=== PATIENT | female | born 1995 | race Caucasian/White ===

== ENCOUNTER 2017-04-18 07:23 | Day surgery (SDC) | payer OTHER ==
[2017-04-18] VITALS (13 sets, daily range): BP systolic 110–148; BP diastolic 55–80; PULSE 56–82; RESP 16–25; Ht 172.7 cm; Wt 169.0 kg
[~2017-04-18] VITALS: Ht 172.7 cm; Wt 169.0 kg
[~2017-04-18 07:23] MED LIST: ACETAMINOPHEN 1000 MG/100 ML IVPB ONE; BUPIVACAINE 0.25% (MPF) 30 ML INJ INJ ONE
[2017-04-18] MEDS ORDERED: SOD CHLORIDE 0.9% 1,000 ML IV ONE (07:30)
[2017-04-18] MEDS ORDERED: CEFAZOLIN 2 GM/50 ML (PMX) 50 ML IVPB ONE (07:30)
[2017-04-18] MEDS ORDERED: ERGO500037 PO (08:09)
[2017-04-18] MEDS ORDERED: RANI150T9 PO (08:09)
[2017-04-18] MEDS ORDERED: PROPOFOL 100 ML ONE (09:47)
[2017-04-18] MEDS ORDERED: LIDOCAINE 2% (SDV) 5 ML INJ ONE (09:52)
[2017-04-18] MEDS ORDERED: MIDAZOLAM 1 MG/ML 2 ML INJ ONE (09:53)
[2017-04-18] MEDS ORDERED: ROCURONIUM 50 MG INJ ONE (09:53)
[2017-04-18] MEDS ORDERED: FENTAnyl 50 MCG/ML VIAL ONE ×2 (09:53→10:19)
[2017-04-18] MEDS ORDERED: BUPIVACAINE 0.25% (MPF) 30 ML INJ ONE (09:55)
[2017-04-18] MEDS ORDERED: FAMOTIDINE 20 MG INJ ONE (10:14)
[2017-04-18] MEDS ORDERED: METOCLOPRAMIDE 10 MG INJ ONE (10:14)
[2017-04-18] MEDS ORDERED: DEXAMETHASONE 4 MG/ML 1 ML INJ ONE (10:19)
[2017-04-18] MEDS ORDERED: NEOSTIGMINE 3 MG/3 ML SYRINGE ONE (10:56)
--- NOTE | 2017-04-18 10:56 | OPR ---
Date/Time of Note Date/Time of Note DATE: 04/18/17 TIME: 10:53 Operative Report Procedure Date: Apr 18, 2017 Preoperative Diagnosis symptomatic gallstones Postoperative Diagnosis same Operation Performed 1. laparoscopic cholecystectomy 2. therapeutic injection of subcutaneous marcaine cpt code 41294 Surgeon: Irene TYLER Anesthesia Type: general Estimated Blood Loss: 0 - 10 ml's Specimens gallbladder Grafts/Implants: none Complications: no Indications Is a 22-year-old female with subsided gallstones. She required surgical excision of her gallbladder. Risks alternatives benefits and personnel were discussed with the patient. Patient expresses understanding and consents to the operation. Procedure Description Patient taken to the OR and prepped and draped in usual sterile fashion. Surgical timeout was performed. IV antibiotics given. Supraumbilical midline incision is made with a 15 blade. Dissection cautery is carried onto the fascia. 0 Vicryl sutures sutures are placed on either side of the midline. The midline is opened and a balloon Khan trocar is introduced. Pneumoperitoneum is established. Midepigastric 12 mm optical trocar was placed under direct visualization right upper quadrant upper flank 5 mm optical trochars were placed under direct visualization. Upon initial inspection there are some adhesions to the gallbladder. The fundus was grasped and retracted in a lateral and outward direction. Lateral dissection with hook cautery was initiated for allowing mobilization and dissection of the cystic duct the cystic duct is identified a critical view is established. The cystic artery and cystic duct is divided using a 35 mm echelon vascular stapler due to the thickness of the cystic duct and its surrounding tissues. The staple line was reinforced with clips. The gallbladder is retrieved using an Endo Catch bag. Minimal irrigation is used. The gallbladder bed is hemostatic. Trochars are removed under direct visualization. 0 Vicryl stay sutures were tied down. Skin is closed using skin geovanni. Therapeutic subcutaneous Marcaine is injected throughout all port sites. Dry dressings were applied. Irene TYLER Apr 18, 2017 10:56
[2017-04-18] MEDS ORDERED: ONDANSETRON 4 MG INJ ONE (10:57)
[2017-04-18] MEDS ORDERED: GLYCOPYRROLATE 0.4 MG INJ ONE (10:57)
[2017-04-18] MEDS ORDERED: HYDROCODONE/APAP (5/325) TAB PO ONE (11:00)
[2017-04-18] MEDS: HYDROmorphONE (0.2 MG/ML) 10ML SYG IV PRN ×3 (11:17→11:35)
[2017-04-18] MEDS ORDERED: hydrALAzine 20 MG INJ IV PRN (11:30)
[2017-04-18] MEDS ORDERED: HYDROmorphONE (0.2 MG/ML) 10ML SYG IV PRN ×2 (11:30)
[2017-04-18] MEDS ORDERED: FENTAnyl 50 MCG/ML VIAL IV PRN ×3 (11:30)
[2017-04-18] MEDS ORDERED: DIPHENHYDRAMINE 50 MG INJ IV PRN (11:30)
[2017-04-18] MEDS ORDERED: KETOROLAC 30 MG INJ IV PRN (11:30)
[2017-04-18] MEDS ORDERED: OXYCODONE/ACETAMINOPHEN (5/325) TAB PO PRN ×2 (11:30)
[2017-04-18] MEDS ORDERED: MIDAZOLAM 1 MG/ML 2 ML INJ IV PRN (11:30)
[2017-04-18] MEDS ORDERED: ONDANSETRON 4 MG INJ IV PRN (11:30)
[2017-04-18] MEDS ORDERED: LABETALOL HCL 20MG INJ IV PRN (11:30)
[2017-04-18] MEDS ORDERED: MEPERIDINE 25 MG INJ IV PRN (11:30)
[2017-04-18] MEDS ORDERED: EPHEDrine SULFATE 50 MG/5 ML SYG IV PRN (11:30)
== END 2017-04-18 12:30 | disposition home or self-care (01) ==
LOC: SDS 07:23
PROVIDERS: ATTEND Surgery
DX: K80.10 Calculus of gallbladder with chronic cholecystitis without obstruction (principal); E66.01 Morbid (severe) obesity due to excess calories; Z68.43 Body mass index [BMI] 50.0-59.9, adult
CPT/HCPCS: 47562; 88304; J0131; J1100; J1170; J1885; J2175; J2250; J2405; J2710; J3010; Z7512; Z7610; J2765